=== PATIENT | female | born 1940 | race Hispanic/Latino ===

== ENCOUNTER 2016-09-16 14:19 | Emergency (ER) | payer MEDICARE, OTHER ==
[2016-09-16 14:31] VITALS: TEMP 98; O2SAT 97
--- NOTE | 2016-09-16 15:22 | ED PDOC ---
HPI: General Adult Time Seen by Provider: 09/16/16 15:12 Chief Complaint (Nursing): High Blood Pressure Chief Complaint (Provider): asymptomatic hypertension History Per: Patient History/Exam Limitations: no limitations Additional Complaint(s): Patient is a 75yo female presenting for hypertension. She reports that she was a health fair over the weekend where she had her blood pressure checked and was told it was 160/100. She reports that she was told to go to her PMD this morning. She went to her PMD this morning who was not there but an RN checked her BP and told her it was 180 systolic and that she should go to the ED immediately. She has no complaints. She denies chest pain, shortness of breath , abdominal pain, vision changes. She reports compliance with BP medication. Past Medical History Reviewed: Historical Data, Nursing Documentation, Vital Signs Vital Signs: Last Vital Signs Temp 98.0 F 09/16/16 14:28 Pulse 73 09/16/16 16:28 Resp 17 09/16/16 15:58 BP 136/88 09/16/16 16:15 Pulse Ox 97 09/16/16 16:28 - Medical History PMH: No Chronic Diseases - Surgical History Surgical History: No Surg Hx - Family History Family History: States: Unknown Family Hx - Social History Drugs: Denies - Allergies Allergies/Adverse Reactions: Allergies Allergy/AdvReac Type Severity Reaction Status Date / Time codeine Allergy profuse Verified 09/16/16 14:27 sweating iodine Allergy RASH Verified 09/16/16 14:27 morphine Allergy RASH Verified 09/16/16 14:27 Review of Systems ROS Statement: Except As Marked, All Systems Reviewed And Found Negative Constitutional: Negative for: Fever Eyes: Negative for: Vision Change Cardiovascular: Negative for: Chest Pain, Palpitations, Paroxysmal Noc. Dyspnea , Edema, Light Headedness Respiratory: Negative for: Cough, Shortness of Breath, SOB with Exertion Gastrointestinal: Negative for: Nausea, Vomiting, Abdominal Pain, Diarrhea, Constipation Musculoskeletal: Negative for: Neck Pain, Back Pain Neurological: Negative for: Weakness, Numbness, Incoordination, Change in Speech , Confusion, Seizures, Altered Mental Status, Headache, Dizziness Physical Exam - Reviewed Nursing Documentation Reviewed: Yes Vital Signs Reviewed: Yes - Physical Exam Appears: Positive for: Well, Non-toxic, No Acute Distress Head Exam: Positive for: ATRAUMATIC, NORMAL INSPECTION, NORMOCEPHALIC Skin: Positive for: Warm, Dry Eye Exam: Positive for: EOMI, PERRL ENT: Positive for: Normal ENT Inspection Cardiovascular/Chest: Positive for: Regular Rate, Rhythm Respiratory: Positive for: Normal Breath Sounds. Negative for: Rales, Rhonchi, Wheezing Gastrointestinal/Abdominal: Positive for: Soft. Negative for: Tenderness, Mass , Distended Back: Negative for: L CVA Tenderness, R CVA Tenderness Extremity: Positive for: Normal ROM Neurologic/Psych: Positive for: Alert, senior solutions consultant II-XII, Oriented, Gait (stable) - ECG ECG: Positive for: Interpreted By Me, Viewed By Me ECG Rhythm: Positive for: Sinus Rhythm Rate: 73 O2 Sat by Pulse Oximetry: 97 (RA) Pulse Ox Interpretation: Normal Medical Decision Making Medical Decision Makin Patient had asymptomatic hypertension on arrival. Based on ACEP guidelines, will not treat. I discussed with patient the importance of not treating asymptomatic hypertension in the ED but that she needed to follow-up with PMD for further management of her blood pressure. Her blood pressure spontaneously normalized in ED without any medication Disposition - Clinical Impression Clinical Impression: Asymptomatic hypertension - Disposition Disposition: Routine/Home Disposition Time: 16:20 Condition: GOOD Additional Instructions: Follow-up with PMD within 2 days for further mgmt of hypertension. Return to ED if condition worsens. Instructions: Chronic Hypertension (ED), Low Sodium Diet (ED), Hypertension (ED ) Additional Comments - Additional Comments Additional Comments: Scribe Attestation Documented by Manuel Silva acting as a scribe for Laurent Bermeo MD. Provider Attestation: All medical record entries made by the Scribe were at my direction and personally dictated by me. I have reviewed the chart and agree that the record accurately reflects my personal performance of the history, physical exam, medical decision making, and the department course for this patient. I have also personally directed, reviewed, and agree with the discharge instructions and disposition.
[2016-09-16 15:59] VITALS: RESP 17
[2016-09-16 16:16] VITALS: BP 136/88
[2016-09-16 16:26] VITALS: PULSE 73
== END 2016-09-16 16:27 | disposition home or self-care (01) ==
LOC: H.ER 14:19
DX: I10 Essential (primary) hypertension (principal)